=== PATIENT | male | born 1995 | race Caucasian/White ===

== ENCOUNTER 2018-01-30 20:51 | Emergency (ER) | payer SELFPAY ==
[~2018-01-30] VITALS: Ht 177.8 cm; Wt 103.1 kg
[2018-01-30 22:20] LABS: APPEARANCE CLEAR ((CLEAR)); BILIRUBIN NEGATIVE; BLOOD NEGATIVE; COLOR YELLOW ((YELLOW)); GLUCOSE (STRIP) NEGATIVE; KETONES NEGATIVE; LEUKOCYTES NEGATIVE; NITRITE NEGATIVE; PROTEIN (STRIP) 30; SPECIFIC GRAVITY 1.031 (1.000-1.030); UCUL ADDED? NO
[2018-01-30 23:20] LABS: BASOPHIL (%) 0.4 % (0-1); EOSINOPHIL (%) 0.7 % (0-5); EOSINOPHIL COUNT 0.1 K/uL (0-0.3); IMMATURE GRANULOCYTE (%) 0.4 % (0.0-0.7); LYMPHOCYTE (%) 30.4 % (15-42); LYMPHOCYTE COUNT 3.3 K/uL (1.0-2.8); MCH 28.8 PG (29.0-34.0); MCHC 36.6 G/DL (30.0-36.0); MCV 78.8 FL (86-99); MONOCYTE (%) 7.4 % (3-12); MONOCYTE COUNT 0.8 K/uL (0-0.8); NEUTROPHIL (%) 60.7 % (45-76); NEUTROPHIL COUNT 6.5 K/uL (1.8-6.4); PLATELET COUNT 209 K/uL (156-360); RBC DIS.WIDTH-CV 11.9 % (11.8-14.6); RBC DIS.WIDTH-SD 33.6 % (39-53); WHITE BLOOD COUNT 10.7 K/uL (4.1-10.2)
[2018-01-30 23:33] LABS: ALBUMIN 4.5 g/dL (3.2-4.8); CHLORIDE 108 mEq/L (99-109); POTASSIUM 3.7 mEq/L (3.7-5.4); SODIUM 141 mEq/L (136-147)
[2018-01-30 23:35] LABS: GLUCOSE 86 mg/dL (70-99)
[2018-01-30 23:36] LABS: TOTAL PROTEIN 7.3 g/dL (6.4-8.3)
[2018-01-30 23:37] LABS: TOTAL BILIRUBIN 0.8 mg/dL (0.0-1.0)
[2018-01-30 23:39] LABS: ALKALINE PHOSPHATASE 66 IU/L (3-129); CREATININE 0.8 mg/dL (0.6-1.3); GFR ESTIMATE (CALCULATED) > 59 mL/min/ (58.99-99999)
[2018-01-30 23:40] LABS: UREA NITROGEN (BUN) 12 mg/dL (9-23)
[2018-01-30 23:41] LABS: AST (GOT) 29 IU/L (2-34)
[2018-01-30 23:42] LABS: ALT (GPT) 30 IU/L (3-49); LIPASE 18 U/L (1.0-51.0)
[2018-01-31 01:54] VITALS: BP 172/96
== END 2018-01-31 01:54 | disposition home or self-care (01) ==
LOC: EME 20:51
PROVIDERS: Emergency Medicine
DX: R10.31 Right lower quadrant pain (principal); R16.1 Splenomegaly, not elsewhere classified
CPT/HCPCS: 74177; 80053; 81003; 83690; 85025; 99281; 99284; J7030